=== PATIENT | male | born 1975 | race Caucasian/White ===

== ENCOUNTER 2017-02-05 16:53 | Emergency (ER) | payer OTHER ==
--- NOTE | 2017-02-05 18:26 | Emergency Department Record ---
History of Present Illness - General Chief Complaint: Ankle/Foot Injury Stated Complaint: RIGHT FOOT PAIN Time Seen by Provider: 02/05/17 18:18 Source: Patient Mode of Arrival: Ambulatory - History of Present Illness Initial Comments: patient dropped wooden bed fram on his foot 3 hours ago. foot is painful and swollen Onset/Timin -: Hour(s) Type of Injury: Blunt Place: Home Context: Direct blow Associated Symptoms: Swelling, Ambulatory - Related Data Home Medications Medication Instructions Recorded Confirmed Last Taken Escitalopram Oxalate [Lexapro] 20 mg PO DAILY 02/05/17 02/05/17 Unknown Previous Rx's Medication Instructions Recorded Hydrocodone/Acetaminophen [Zirconia 1 each PO Q6HR #30 tablet 02/05/17 5-325 Tablet] Allergies Allergy/AdvReac Type Severity Reaction Status Date / Time No Known Drug Allergies Allergy Verified 02/05/17 17:27 Travel Screening - Travel/Exposure Within Last 30 Days Have you traveled within the last 30 days?: No - Travel/Exposure Within Last Year Have you traveled outside the [place] in the last year?: No - Additonal Travel Details Have you been exposed to anyone with a communicable illness?: No - Travel Symptoms Symptom Screening: None Review of Systems Reviewed: No additional complaints except as noted below Constitutional: Reports: As per HPI. Denies: Chills, Fever, Malaise, Night sweats, Weakness, Weight change Eyes: Reports: As per HPI. Denies: Eye discharge, Eye pain, Photophobia, Vision change ENT: Reports: As per HPI. Denies: Congestion, Dental pain, Ear pain, Epistaxis , Hearing loss, Throat pain Respiratory: Reports: As per HPI. Denies: Cough, Dyspnea, Hemoptysis, Stridor, Wheezes Cardiovascular: Reports: As per HPI. Denies: Arrhythmia, Chest pain, Dyspnea on exertion, Edema, Murmurs, Orthopnea, Palpitations, Paroxysmal nocturnal dyspnea, Rheumatic Fever, Syncope Endocrine: Reports: As per HPI. Denies: Fatigue, Heat or cold intolerance, Polydipsia, Polyuria Gastrointestinal: Reports: As per HPI. Denies: Abdominal pain, Constipation, Diarrhea, Hematemesis, Hematochezia, Melena, Nausea, Vomiting Genitourinary: Reports: As per HPI. Denies: Dysuria, Frequency, Hematuria, Incontinence, Retention, Testicular pain, Testicular mass, Urgency Musculoskeletal: Reports: As per HPI, Other (foot pain). Denies: Arthralgia, Back pain, Gout, Joint swelling, Myalgia, Neck pain Skin: Reports: As per HPI. Denies: Bruising, Change in color, Change in hair/ nails, Lesions, Pruritus, Rash Neurological: Reports: As per HPI. Denies: Abnormal gait, Confusion, Headache, Numbness, Paresthesias, Seizure, Tingling, Tremors, Vertigo, Weakness Psychiatric: Reports: As per HPI. Denies: Anxiety, Auditory hallucinations, Depression, Homicidal thoughts, Suicidal thoughts, Visual hallucinations Hematological/Lymphatic: Reports: As per HPI. Denies: Anemia, Blood Clots, Easy bleeding, Easy bruising, Swollen glands Past Medical History - SOCIAL HISTORY Smoking Status: Former smoker Alcohol Use: Heavy Drug Use: None - RESPIRATORY Hx Respiratory Disorders: No - CARDIOVASCULAR Hx Cardio Disorders: No - NEURO Hx Neuro Disorders: No - GI Hx GI Disorders: No - Hx Genitourinary Disorders: No - ENDOCRINE Hx Endocrine Disorders: No - MUSCULOSKELETAL Hx Musculoskeletal Disorders: No - PSYCH Hx Psych Problems: Yes Hx Depression: Yes - HEMATOLOGY/ONCOLOGY Hx Hematology/Oncology Disorders: No Family Medical History Any Significant Family History?: No Family Hx Comment (NOT TO BE USED IN PLACE OF ITEMS BELOW): denies Physical Exam - General General Appearance: Alert, Oriented x3, Cooperative, No acute distress - Head Head exam: Normal inspection - Eye Eye exam: Normal appearance, PERRL Pupils: Normal accommodation - ENT ENT exam: Normal exam, Mucous membranes moist, Normal external ear exam, Normal orophraynx, TM's normal bilaterally Ear exam: Normal external inspection. negative: External canal tenderness Nasal Exam: Normal inspection. negative: Discharge, Sinus tenderness Mouth exam: Normal external inspection, Tongue normal Teeth exam: Normal inspection. negative: Dental caries Throat exam: Normal inspection. negative: Tonsillar erythema, Tonsillar exudate - Neck Neck exam: Normal inspection, Full ROM. negative: Tenderness - Respiratory Respiratory exam: Normal lung sounds bilaterally. negative: Respiratory distress - Cardiovascular Cardiovascular Exam: Regular rate, Normal rhythm, Normal heart sounds - GI/Abdominal GI/Abdominal exam: Soft, Normal bowel sounds. negative: Tenderness - Rectal Rectal exam: Deferred - exam: Deferred - Extremities Extremities exam: Normal inspection, Full ROM, Normal capillary refill. negative: Tenderness - Back Back exam: Reports: Normal inspection, Full ROM. Denies: Muscle spasm, Rash noted, Tenderness - Neurological Neurological exam: Alert, Normal gait, Oriented X3, Reflexes normal - Psychiatric Psychiatric exam: Normal affect, Normal mood - Skin Skin exam: Dry, Intact, Normal color, Warm Course Vital Signs 02/05/17 17:21 Temperature 99.0 F Pulse Rate 91 H Respiratory 16 Rate Blood Pressure 145/104 Pulse Ox 97 Disposition Clinical Impression: Contusion, foot Qualifiers: Encounter type: initial encounter Laterality: right Qualified Code(s): S90.31XA - Contusion of right foot, initial encounter Disposition: Home, Self-Care Condition: (1) Good Instructions: Contusion in Adults (ED) Additional Instructions: follow up with family in 3 days Prescriptions: Hydrocodone/Acetaminophen [Zirconia 5-325 Tablet] 1 each PO Q6HR #30 tablet Forms: Patient Portal Access Time of Disposition: 18:26 (7i) Quality - Quality Measures Quality Measures: N/A - Blood Pressure Screening Does Patient Have Any of the Following: No Blood Pressure Classification: Hypertensive Reading Systolic Measurement: 145 Diastolic Measurement: 104 Screening for High Blood Pressure: < Pre-Hypertensive BP, F/U Documented > [ G8950] Pre-Hypertensive Follow-up Interventions: Referral to alternative/primary care provider. First Hypertensive Follow-up Interventions: Referral to alternative/primary care provider.
--- NOTE | 2017-02-07 12:58 | RADIOLOGY REPORT ---
EXAM: RIGHT FOOT, THREE VIEWS HISTORY: DROPPED OBJECT ONTO DORSAL FOOT. TECHNIQUE: Three views of the right foot were obtained. FINDINGS: There is mild to moderate degenerative change first MTP joint. No fracture is seen. Appropriate non-weight bearing tarsal metatarsal alignment. Moderate dorsal forefoot soft tissue swelling. Small posterior and tiny plantar calcaneal enthesophytes. IMPRESSION: NO ACUTE OSSEOUS ABNORMALITY RIGHT FOOT. MODERATE FOREFOOT SOFT TISSUE SWELLING. DEGENERATIVE CHANGE. JOB NUMBER: [id number] MTDD
== END 2017-02-05 18:43 | disposition home or self-care (01) ==
LOC: ER 16:53
DX: S90.31XA Contusion of right foot, initial encounter (principal); W22.8XXA Striking against or struck by other objects, initial encounter; Y92.009 Unspecified place in unspecified non-institutional (private) residence as the place of occurrence of the external cause
CPT/HCPCS: 99283

== ENCOUNTER 2017-04-29 11:47 | Emergency (ER) | payer OTHER ==
--- NOTE | 2017-04-29 13:32 | Emergency Department Record ---
History of Present Illness - General Chief complaint: Eye Problem Stated complaint: L EYE SWOLLEN Time Seen by Provider: 04/29/17 13:01 Source: Patient, RN notes reviewed Mode of Arrival: Ambulatory - History of Present Illness Initial comments: left eye redness and upper lid is swollen and he has inflamation. vesicles on the upper eye lid Onset/Timin -: Days(s) Onset Description: Awoke with symptoms Place: Home If Injury: None Severity: Moderate Severity scale (1-10): 1 If Pain, Quality: Aching Consistency: Constant Associated Symptoms: None Treatments Prior to Arrival: None - Related Data Visual acuity (L) = 20/: 20 Visual acuity (R) = 20/: 25 With correction: No ( both) Previous Rx's Medication Instructions Recorded Acyclovir [Zovirax] 1 apply TP 5XD #15 gm 04/29/17 Sulfacetamide Sodium [Bleph-10] 1 - 2 drop AFFEYE QID #5 ml 04/29/17 Allergies Allergy/AdvReac Type Severity Reaction Status Date / Time No Known Drug Allergies Allergy Verified 02/05/17 17:27 Travel Screening - Travel/Exposure Within Last 30 Days Have you traveled within the last 30 days?: No - Travel/Exposure Within Last Year Have you traveled outside the [place] in the last year?: No - Additonal Travel Details Have you been exposed to anyone with a communicable illness?: No - Travel Symptoms Symptom Screening: None Past Medical History - SOCIAL HISTORY Smoking Status: Former smoker Alcohol Use: None Drug Use: None - RESPIRATORY Hx Respiratory Disorders: No - CARDIOVASCULAR Hx Cardio Disorders: No - NEURO Hx Neuro Disorders: No - GI Hx GI Disorders: No - Hx Genitourinary Disorders: No - ENDOCRINE Hx Endocrine Disorders: No - MUSCULOSKELETAL Hx Musculoskeletal Disorders: No - PSYCH Hx Psych Problems: Yes Hx Depression: Yes - HEMATOLOGY/ONCOLOGY Hx Hematology/Oncology Disorders: No Family Medical History Any Significant Family History?: Yes Family Hx Comment (NOT TO BE USED IN PLACE OF ITEMS BELOW): denies Physical Exam - Eye With correction: No (2015 both) Course Vital Signs 04/29/17 12:05 Temperature 97.8 F Pulse Rate 75 Respiratory 16 Rate Blood Pressure 147/98 Pulse Ox 97 Disposition Clinical Impression: Viral rash Disposition: Home, Self-Care Condition: (1) Good Instructions: Stye (ED) Additional Instructions: follow up with family Prescriptions: Acyclovir [Zovirax] 1 apply TP 5XD #15 gm Sulfacetamide Sodium [Bleph-10] 1 - 2 drop AFFEYE QID #5 ml Forms: Patient Portal Access Time of Disposition: 13:56 Quality - Quality Measures Quality Measures: N/A - Blood Pressure Screening Does Patient Have Any of the Following: No Blood Pressure Classification: Hypertensive Reading Systolic Measurement: 147 Diastolic Measurement: 98 Screening for High Blood Pressure: < First Hypertensive BP, F/U Documented > [ G8950] First Hypertensive Follow-up Interventions: Referral to alternative/primary care provider.
== END 2017-04-29 14:07 | disposition home or self-care (01) ==
LOC: ER 11:47
DX: B34.9 Viral infection, unspecified (principal); R21 Rash and other nonspecific skin eruption
CPT/HCPCS: 99281

== ENCOUNTER 2018-02-18 16:49 | Emergency (ER) | payer OTHER ==
--- NOTE | 2018-02-18 17:56 | Emergency Department Record ---
History of Present Illness - General Chief complaint: ENT Stated complaint: RT EAR PAIN,SINUS DRAINAGE,DIZINESS,LACK OF ENERGY Time Seen by Provider: 02/18/18 17:14 Source: Patient Mode of Arrival: Ambulatory Limitations: No limitations - History of Present Illness Initial comments: pt has had postnasal drainage for a month w a headache and dizziness, off balance, vertigo. he went to [facility] 3 weeks ago and took a 10day course of augmentin. he states hes no better and in fact he's worse. he also has r ear pain complaint: Ear pain Onset/Timin -: Month(s) Location: R ear - Related Data Previous Rx's Medication Instructions Recorded Azithromycin [Zithromax] 250 mg PO DAILY #4 tab 02/18/18 Meclizine HCl [Antivert] 25 mg PO Q8H #14 tablet 02/18/18 Allergies Allergy/AdvReac Type Severity Reaction Status Date / Time No Known Drug Allergies Allergy Verified 02/18/18 16:59 Travel Screening - Travel/Exposure Within Last 30 Days Have you traveled within the last 30 days?: No - Travel/Exposure Within Last Year Have you traveled outside the [place] in the last year?: No - Additonal Travel Details Have you been exposed to anyone with a communicable illness?: No Review of Systems Reviewed: No additional complaints except as noted below Constitutional: Reports: As per HPI. Denies: Chills, Fever, Malaise, Night sweats, Weakness, Weight change Eyes: Reports: As per HPI. Denies: Eye discharge, Eye pain, Photophobia, Vision change ENT: Reports: As per HPI, Congestion, Ear pain. Denies: Dental pain, Epistaxis , Hearing loss, Throat pain Respiratory: Reports: As per HPI. Denies: Cough, Dyspnea, Hemoptysis, Stridor, Wheezes Cardiovascular: Reports: As per HPI. Denies: Arrhythmia, Chest pain, Dyspnea on exertion, Edema, Murmurs, Orthopnea, Palpitations, Paroxysmal nocturnal dyspnea, Rheumatic Fever, Syncope Endocrine: Reports: As per HPI. Denies: Fatigue, Heat or cold intolerance, Polydipsia, Polyuria Gastrointestinal: Reports: As per HPI. Denies: Abdominal pain, Constipation, Diarrhea, Hematemesis, Hematochezia, Melena, Nausea, Vomiting Genitourinary: Reports: As per HPI. Denies: Dysuria, Frequency, Hematuria, Incontinence, Retention, Testicular pain, Testicular mass, Urgency Musculoskeletal: Reports: As per HPI. Denies: Arthralgia, Back pain, Gout, Joint swelling, Myalgia, Neck pain Skin: Reports: As per HPI. Denies: Bruising, Change in color, Change in hair/ nails, Lesions, Pruritus, Rash Neurological: Reports: As per HPI, Vertigo. Denies: Abnormal gait, Confusion, Headache, Numbness, Paresthesias, Seizure, Tingling, Tremors, Weakness Psychiatric: Reports: As per HPI. Denies: Anxiety, Auditory hallucinations, Depression, Homicidal thoughts, Suicidal thoughts, Visual hallucinations Hematological/Lymphatic: Reports: As per HPI. Denies: Anemia, Blood Clots, Easy bleeding, Easy bruising, Swollen glands Past Medical History - SOCIAL HISTORY Smoking Status: Former smoker Alcohol Use: Occasional Drug Use: None - RESPIRATORY Hx Respiratory Disorders: No - CARDIOVASCULAR Hx Cardio Disorders: No - NEURO Hx Neuro Disorders: No - GI Hx GI Disorders: No - Hx Genitourinary Disorders: No - ENDOCRINE Hx Endocrine Disorders: No - MUSCULOSKELETAL Hx Musculoskeletal Disorders: No - PSYCH Hx Psych Problems: Yes Hx Depression: Yes - HEMATOLOGY/ONCOLOGY Hx Hematology/Oncology Disorders: No Family Medical History Any Significant Family History?: No Family Hx Comment (NOT TO BE USED IN PLACE OF ITEMS BELOW): denies Physical Exam - General General Appearance: Alert, Oriented x3, Cooperative, Mild distress - Head Head exam: Normal inspection - Eye Eye exam: Normal appearance, PERRL, EOMI Pupils: Normal accommodation - ENT ENT exam: Normal exam, Mucous membranes moist, Normal external ear exam, Normal orophraynx, TM's normal bilaterally Ear exam: Normal external inspection. negative: External canal tenderness Nasal Exam: Normal inspection. negative: Discharge, Sinus tenderness Mouth exam: Normal external inspection, Tongue normal Teeth exam: Normal inspection. negative: Dental caries Throat exam: Normal inspection. negative: Tonsillar erythema, Tonsillar exudate - Neck Neck exam: Normal inspection, Full ROM. negative: Tenderness - Respiratory Respiratory exam: Normal lung sounds bilaterally. negative: Respiratory distress - Cardiovascular Cardiovascular Exam: Regular rate, Normal rhythm, Normal heart sounds - GI/Abdominal GI/Abdominal exam: Soft, Normal bowel sounds. negative: Tenderness - Rectal Rectal exam: Deferred - exam: Deferred - Extremities Extremities exam: Normal inspection, Full ROM, Normal capillary refill. negative: Tenderness - Back Back exam: Reports: Normal inspection, Full ROM. Denies: Muscle spasm, Rash noted, Tenderness - Neurological Neurological exam: Alert, CN II-XII intact, Normal gait, Oriented X3 - Psychiatric Psychiatric exam: Normal affect, Normal mood - Skin Skin exam: Dry, Intact, Normal color, Warm Course Vital Signs 02/18/18 16:53 Temperature 99.0 F Pulse Rate 91 H Respiratory 16 Rate Blood Pressure 149/97 Pulse Ox 98 Disposition Disposition: Discharge Clinical Impression: Vertigo Sinusitis, acute maxillary Qualifiers: Recurrence: not specified as recurrent Qualified Code(s): J01.00 - Acute maxillary sinusitis, unspecified Disposition: Home, Self-Care Condition: (1) Good Instructions: Sinusitis (ED), Vertigo (ED) Additional Instructions: follow up with family doctor. return sooner if worse. Prescriptions: Azithromycin [Zithromax] 250 mg PO DAILY #4 tab Meclizine HCl [Antivert] 25 mg PO Q8H #14 tablet Forms: Patient Portal Access Quality - Quality Measures Quality Measures: Adult Sinusitis (>18yr) - Adult Sinusitis: Abx Overuse Quality Measure: Measure #331: Adult Sinusitis Abx Overuse Onset of symptoms over 10 days: Yes Presumed Bacterial: Yes Antibiotic Prescribed: Yes Adult Sinusitis: Antibiotic Within 10 Days of Symptoms: <Antibiotic NOT Prescribed Within 10 Days> [G9287] Reason for Prescription: Presumed Bacterial - Adult Sinusitis: Bacterial w/Abx Quality Measure: Measure #332: Adult Bacterial Sinusitis Correct Abx Use Adult Sinusitis: Appropriate Antibiotic: NOT Prescribed w/Documented Reason [ G9313] Reason for Not Prescribing Amoxicillin: failed previous treatment with augmentin. - Adult Sinusitis: CT Use Quality Measure: Measure #333: Adult Sinusitis Adult Sinusitis: CT for Acute Sinusitis: CT Ordered With Documented Reason [ G9348] Reason for Ordering CT: Symptoms At Least 7 to 10 Days - Blood Pressure Screening Does Patient Have Any of the Following: No Blood Pressure Classification: Hypertensive Reading Systolic Measurement: 149 Diastolic Measurement: 97 Screening for High Blood Pressure: < First Hypertensive BP, F/U Documented > [ G8950] First Hypertensive Follow-up Interventions: Follow-up with rescreen GT 1 day and LT 4 weeks.
[2018-02-18] MEDS ORDERED: AZITHROMYCIN 500 MG TABLET PO ONE (18:27)
[2018-02-18] MEDS ORDERED: MECLIZINE 25 MG TABLET PO ONE (18:27)
--- NOTE | 2018-02-20 07:31 | CT SCAN REPORT ---
EXAM: CT SCAN OF THE BRAIN WITHOUT CONTRAST HISTORY: VERTIGO AND DIZZINESS. RIGHT EAR PAIN. SYMPTOMS FOR THE PAST MONTH. TECHNIQUE: Standard CT imaging of the brain was performed without contrast. Comparison: None. Encounter: Not applicable. FINDINGS: The ventricles and subarachnoid spaces are normal. The brain parenchyma is unremarkable. There is no mass, mass effect, intracranial hemorrhage, visible acute infarct, or abnormal extraaxial fluid. The skull is intact. The orbits, sinuses, and mastoids are normal. 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 IMPRESSION: NO ACUTE INTRACRANIAL ABNORMALITY. JOB NUMBER: [id number] [facility]
== END 2018-02-18 18:57 | disposition home or self-care (01) ==
LOC: ER 16:49
DX: R42 Dizziness and giddiness (principal); J01.00 Acute maxillary sinusitis, unspecified; R51 Headache; H92.01 Otalgia, right ear; M54.5 Low back pain; Z87.891 Personal history of nicotine dependence
CPT/HCPCS: 70450; 99283

== ENCOUNTER 2018-04-16 12:10 | Day surgery (SDC) | payer OTHER ==
[2018-04-16] MEDS ORDERED: MIDAZOLAM HCL 2MG/2ML VIAL IV ONE (12:11)
[2018-04-16] MEDS ORDERED: LIDOCAINE 2% MDV (20MG/ML) 20ML VIAL IV ONE (12:11)
[2018-04-16] MEDS ORDERED: PROPOFOL 10 MG/ML VIAL IV ONE (12:11)
== END 2018-04-16 14:25 | disposition home or self-care (01) ==
LOC: HOP 12:10 → EDSTATUS 12:30 → HOP 14:25
PROVIDERS: ATTEND Internal Medicine Gastroenterology
DX: Z12.11 Encounter for screening for malignant neoplasm of colon (principal); Z80.0 Family history of malignant neoplasm of digestive organs; D12.4 Benign neoplasm of descending colon; D12.5 Benign neoplasm of sigmoid colon